=== PATIENT | female | born 1995 | race American Indian/Alaskan Native ===

== ENCOUNTER 2018-01-15 02:20 | Inpatient (IN) | payer SELFPAY ==
[2018-01-15] MEDS ORDERED: NACL 0.9% 1000 ML 1,000 ML IV ONE ×4 (03:05→16:00)
[2018-01-15] MEDS ORDERED: ZOFRAN IV ONE (03:14)
--- NOTE | 2018-01-15 03:18 | Emergency Department Report ---
HPI - General Chief Complaint: Overdose Time Seen by Provider: 01/15/18 03:04 - HPI HPI: Room 22 The patient is a 22-year-old female presenting with a chief complaint of suicidal ideation/drug overdose. The patient states she took between 18 and 20 Risperdal 2 mg pills at approximately midnight because she wanted to "go to sleep." She acknowledges she's been having thoughts of wanting to harm herself for the past 2-3 days. Patient denies any other coingestants. When asked how she is feeling currently the patient lives she feels tired and nauseous. Patient denies any other complaints Location: Mental state, see above Duration: [See above] Quality: Suicidal Severity: Severe Modifying factors: [see above] Context: [see above] Mode of transportation: [not driving] ED Past Medical Hx - Past Medical History Hx Psychiatric Treatment: Yes Hx Asthma: Yes Additional medical history: anxiety - Surgical History Past Surgical History?: No - Family History Family history: no significant - Social History Smoking Status: Never Smoker Substance Use Type: None (denies illicit drug use) - Medications Home Medications: Home Medications Medication Instructions Recorded Confirmed Last Taken Type Diclofenac Sodium 75 mg PO BID PRN #14 tablet. 04/30/15 Unknown Rx hydrOXYzine PAMOATE [Vistaril] 25 mg PO Q6HR PRN #14 capsule 04/30/15 Unknown Rx ED Review of Systems ROS: Stated complaint: OVERDOSE Other details as noted in HPI Constitutional: malaise Eyes: denies: eye pain ENT: denies: throat pain Respiratory: no symptoms reported Cardiovascular: denies: chest pain Endocrine: no symptoms reported Gastrointestinal: nausea. denies: abdominal pain Genitourinary: denies: dysuria Musculoskeletal: denies: back pain Neurological: denies: headache Psychiatric: suicidal thoughts Physical Exam - Physical Exam Vital Signs: Vital Signs 01/15/18 01/15/18 01/15/18 02:38 02:44 02:45 Temperature 98.3 F Pulse Rate 113 H 109 H 101 H Respiratory 25 H 18 Rate Blood Pressure 97/42 116/66 O2 Sat by Pulse 100 100 Oximetry 01/15/18 01/15/18 03:00 03:05 Temperature Pulse Rate 91 H 98 H Respiratory 18 Rate Blood Pressure 89/42 O2 Sat by Pulse 100 Oximetry Physical Exam: GENERAL: The patient is well-developed well-nourished female lying on stretcher resting on appeared to be in acute distress. [] HEENT: Normocephalic. Atraumatic. Extraocular motions are intact. Patient has moist mucous membranes. NECK: Supple. Trachea midline CHEST/LUNGS: Clear to auscultation. There is no respiratory distress noted. HEART/CARDIOVASCULAR: Regular. There is tachycardia. There is no gallop rub or murmur. ABDOMEN: Abdomen is soft, nontender. Patient has normal bowel sounds. There is no abdominal distention. SKIN: There is no rash. There is no edema. There is no diaphoresis. NEURO: The patient is awake, appears somewhat sleepy but is oriented. The patient is cooperative. The patient has normal speech MUSCULOSKELETAL: There is no evidence of acute injury. ED Course Vital Signs 01/15/18 01/15/18 01/15/18 02:38 02:44 02:45 Temperature 98.3 F Pulse Rate 113 H 109 H 101 H Respiratory 25 H 18 Rate Blood Pressure 97/42 116/66 O2 Sat by Pulse 100 100 Oximetry 01/15/18 01/15/18 03:00 03:05 Temperature Pulse Rate 91 H 98 H Respiratory 18 Rate Blood Pressure 89/42 O2 Sat by Pulse 100 Oximetry - Consultations Consultation #1: 01/15/18 03:20 Poison control called- cased discussed with Ale. States from [place] depends on whether the patient is a poor stream metabolize her. Recommend minimal observation for 9 hours with symptomatic and supportive care. 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 States may C hyponatremia, hypokalemia or hypomagnesemia. [place] QTC prolongation 470-500 or QRS prolongation from 110-120. Recommends optimizing electrolytes with a goal of: Potassium 4, calcium 9, magnesium 2. States the half-life ranges from 2.8-16 hours and there is an active metabolite that has a half-life of 20-22 hours. ED Medical Decision Making - Lab Data Result diagrams: 01/15/18 03:25 01/15/18 03:25 Laboratory Tests 01/15/18 01/15/18 01/15/18 03:25 03:25 03:25 WBC 6.7 RBC 3.62 L Hgb 11.1 Hct 32.9 MCV 91 MCH 31 MCHC 34 RDW 13.6 Plt Count 229 Lymph % (Auto) 20.4 [place] % (Auto) 7.2 Eos % (Auto) 0.1 Baso % (Auto) 0.2 Lymph # 1.4 [place] # 0.5 Eos # 0.0 Baso # 0.0 Seg Neutrophils % 72.1 H Seg Neutrophils # 4.8 Sodium 137 Potassium 3.0 L Chloride 101.3 Carbon Dioxide 21 L Anion Gap 18 BUN 8 Creatinine 0.7 Estimated GFR > 60 BUN/Creatinine Ratio 11 Glucose 94 Calcium 8.6 Magnesium Total Bilirubin 0.70 AST 17 ALT 8 Alkaline Phosphatase 48 Total Protein 6.5 Albumin 3.8 L Albumin/Globulin Ratio 1.4 HCG, Qual Urine Color Urine Turbidity Urine pH Ur Specific [place] Urine Protein Urine Glucose (UA) Urine Ketones Urine Blood Urine Nitrite Urine Bilirubin Urine Urobilinogen Ur Leukocyte Esterase Urine WBC (Auto) Urine RBC (Auto) U Epithel Cells (Auto) Urine Bacteria (Auto) Salicylates < 0.3 L Urine Opiates Screen Urine Methadone Screen Acetaminophen Ur Barbiturates Screen Ur Phencyclidine Scrn Ur Amphetamines Screen U Benzodiazepines Scrn Urine Cocaine Screen U Marijuana (THC) Screen Drugs of Abuse Note Plasma/Serum Alcohol 01/15/18 01/15/18 01/15/18 03:25 03:25 03:25 WBC RBC Hgb Hct MCV MCH MCHC RDW Plt Count Lymph % (Auto) [place] % (Auto) Eos % (Auto) Baso % (Auto) Lymph # [place] # Eos # Baso # Seg Neutrophils % Seg Neutrophils # Sodium Potassium Chloride Carbon Dioxide Anion Gap BUN Creatinine Estimated GFR BUN/Creatinine Ratio Glucose Calcium Magnesium Total Bilirubin AST ALT Alkaline Phosphatase Total Protein Albumin Albumin/Globulin Ratio HCG, Qual Negative Urine Color Urine Turbidity Urine pH Ur Specific [place] Urine Protein Urine Glucose (UA) Urine Ketones Urine Blood Urine Nitrite Urine Bilirubin Urine Urobilinogen Ur Leukocyte Esterase Urine WBC (Auto) Urine RBC (Auto) U Epithel Cells (Auto) Urine Bacteria (Auto) Salicylates Urine Opiates Screen Urine Methadone Screen Acetaminophen < 5.0 L Ur Barbiturates Screen Ur Phencyclidine Scrn Ur Amphetamines Screen U Benzodiazepines Scrn Urine Cocaine Screen U Marijuana (THC) Screen Drugs of Abuse Note Plasma/Serum Alcohol < 0.01 01/15/18 01/15/18 01/15/18 03:25 Unknown Unknown WBC RBC Hgb Hct MCV MCH MCHC RDW Plt Count Lymph % (Auto) [place] % (Auto) Eos % (Auto) Baso % (Auto) Lymph # [place] # Eos # Baso # Seg Neutrophils % Seg Neutrophils # Sodium Potassium Chloride Carbon Dioxide Anion Gap BUN Creatinine Estimated GFR BUN/Creatinine Ratio Glucose Calcium Magnesium 1.80 Total Bilirubin AST ALT Alkaline Phosphatase Total Protein Albumin Albumin/Globulin Ratio HCG, Qual Urine Color Straw Urine Turbidity Clear Urine pH 6.0 Ur Specific [place] 1.003 Urine Protein <15 mg/dl Urine Glucose (UA) Neg Urine Ketones Tr Urine Blood Sm Urine Nitrite Neg Urine Bilirubin Neg Urine Urobilinogen < 2.0 Ur Leukocyte Esterase Mod Urine WBC (Auto) 5.0 Urine RBC (Auto) 6.0 U Epithel Cells (Auto) 2.0 Urine Bacteria (Auto) 1+ Salicylates Urine Opiates Screen Presumptive negative Urine Methadone Screen Presumptive negative Acetaminophen Ur Barbiturates Screen Presumptive negative Ur Phencyclidine Scrn Presumptive negative Ur Amphetamines Screen Presumptive negative U Benzodiazepines Scrn Presumptive negative Urine Cocaine Screen Presumptive negative U Marijuana (THC) Screen Presumptive negative Drugs of Abuse Note Disclamer Plasma/Serum Alcohol - EKG Data -: EKG Interpreted by Nv EKG shows normal: sinus rhythm Rate: normal - EKG Data When compared to previous EKG there are: previous EKG unavailable Interpretation: other (QRS 93, QTc 476) - Differential Diagnosis suicidal ideation, Risperdal overdose Critical care attestation.: If time is entered above; I have spent that time in minutes in the direct care of this critically ill patient, excluding procedure time. ED Disposition Clinical Impression: Suicidal ideation, Suicide gesture, Intentional drug overdose, Hypokalemia Disposition: DC/TX-65 PSY HOSP/PSY UNIT Is pt being admited?: No Does the pt Need Aspirin: No Condition: Serious Referrals: PRIMARY CARE, [Primary Care Provider] - 3-5 Days Time of Disposition: 04:04 (hospitalist paged (Dr. Jennifer Angel))
[2018-01-15 03:36] LABS: Basophils % (Auto) 0.2 % (0.0-1.8); Eosinophils % (Auto) 0.1 % (0.0-4.3); Hematocrit 32.9 % (30.3-42.9); Hemoglobin 11.1 gm/dl (10.1-14.3); Lymphocytes # (Auto) 1.4 K/mm3 (1.2-5.4); Lymphocytes % (Auto) 20.4 % (13.4-35.0); Mean Corpuscular HGB Conc 34 % (30-34); Mean Corpuscular Hemoglobin 31 pg (28-32); Mean Corpuscular Volume 91 fl (79-97); Monocytes # (Auto) 0.5 K/mm3 (0.0-0.8); Monocytes % (Auto) 7.2 % (0.0-7.3); Platelet Count 229 K/mm3 (140-440); Red Blood Count 3.62 M/mm3 (3.65-5.03); Red Cell Distribution Width 13.6 % (13.2-15.2)
[2018-01-15 03:46] LABS: Bacteria,Urine 1+ /HPF (Negative); Bilirubin,Urine NEG (Negative); Blood,Urine SM (Negative); Color,Urine Straw (Yellow); Protein,Urine <15 mg/dL mg/dL (Negative); Urobilinogen,Urine < 2.0 mg/dL (<2.0)
[2018-01-15] MEDS ORDERED: MAGNESIUM SULFATE 2GM/50ML 2 GM/50 ML BAG IV ONE (03:49)
[2018-01-15 03:51] LABS: Alanine Aminotransferase 8 units/L (7-56); Albumin 3.8 g/dL (3.9-5); BUN/Creatinine Ratio 11; Blood Urea Nitrogen 8 mg/dL (7-17); Calcium 8.6 mg/dL (8.4-10.2); Hemolysis Index 5
[2018-01-15 03:53] LABS: Amphetamine Screen,Urine PRESUMPTIVE NEGATIVE; Benzodiazepines Screen,Urine PRESUMPTIVE NEGATIVE; Cannabinoid Screen,Urine PRESUMPTIVE NEGATIVE; Cocaine Screen,Urine PRESUMPTIVE NEGATIVE; Methadone Screen,Urine PRESUMPTIVE NEGATIVE; Opiate Screen,Urine PRESUMPTIVE NEGATIVE
[2018-01-15] MEDS ORDERED: K-DUR PO ONE (04:00)
[2018-01-15] MEDS ORDERED: CALCIUM GLUCONATE 1,000 MG in NACL 0.9% 100 ML IV ONE (04:00)
[2018-01-15] MEDS: KCL 10MEQ/100ML 10 MEQ/100 ML BAG IV SCH ×5 (04:44→13:34)
--- NOTE | 2018-01-15 10:08 | History and Physical Report ---
History of Present Illness Date of examination: 01/15/18 Date of admission: 01/15/18 06:02 Chief complaint: overdose of risperidol History of present illness: Patient is a 22-year-old lady who has a history of bipolar disorder with depression presented to emergency department on account of the Risperdal. Patient stated that she wanted with her sleep. Took 18-20 tablets of Risperdal. Admits she's been having some suicidal ideations and had been planned overdose. However currently states that he no longer wants to hurt herself. Feels tired. However interactive. Denies any chest pain no abdomen tenderness and no vomiting. Denies any visual or auditory or tactile hallucinations. Blood chemistry in the emergency department was for hypokalemia otherwise unremarkable. Past History Past Medical History: other (schizophrenia) Past Surgical History: No surgical history Social history: denies: smoking, alcohol abuse Family history: denies: hypertension, stroke Medications and Allergies Allergies Allergy/AdvReac Type Severity Reaction Status Date / Time No Known Allergies Allergy Verified 01/15/18 02:54 Home Medications Medication Instructions Recorded Confirmed Last Taken Type Diclofenac Sodium 75 mg PO BID PRN #14 tablet. 04/30/15 01/17/18 Unknown Rx hydrOXYzine PAMOATE [Vistaril] 25 mg PO Q6HR PRN #14 capsule 04/30/15 01/17/18 Unknown Rx Active Meds: Review of systems Constitutional: Well Nouridhed and Well developed. Head: NC/ AT Eyes: Denies any visual impairments. No discharge from the eyes Nose: Denies any rhinorrhea or epistaxis Throats: Denies any post nasal drainage. Ears: Denies any hearing deficits Cardiovascular system: Denies any chest pain, shortness of breath, orthopnea, paroxysmal nocturnal dyspnea, or palpitation. Respiratory system: Denies any cough, difficulty breathing, wheezing, pleuritic chest pain, Gastrointestinal system: Denies any abdominal pain, nausea vomiting, hematemesis or melena. Neurological system: Denies any headache, slurred speech, facial droop, lateralizing weakness Genitalia system: Denies any dysuria, urinary frequency or urgency, urethral discharge Skin: No rashes, hyperpigmented spots. Hematological: Denies any cervical tenderness hemorrhages or petechia. Immunological: Denies any multiple septic spots, Lymphatic: Denies any generalized lymphadenopathy. Endocrine: Denies any polyuria, polydipsia, polyphagia. No heat or cold intolerance. Musculoskeletal system: No joint pain or swelling. Psych: Has occasional suicidal ideations. Denies visual, tactile or auditory hallucination Exam - Physical Exam Narrative exam: Constitutional: Well-nourished well-developed. In no distress Head: Normocephalic atraumatic Eyes: Pupils are equal round and reactive to light Nose: No enlarged turbinates, no septal deviation. Mouth: Moist mucous membranes. Neck: Supple no thyromegaly. No bruit. No JVD Heart: Regular rate and rhythm, S1-S2 abnormal. No rubs murmurs or gallop Lungs: Clear to auscultation bilaterally no rales or rhonchi Abdomen: Soft, nontender. Bowel sound are present. Extremities: No edema no cyanosis and no clubbing. Neuro: Alert oriented Oriented x3. No focal sensory or motor deficit. Skin: No rashes no hyperemic spots Psychiatry: Has suicidal ideations in the past but none now - Constitutional Vitals: Temp Pulse Resp BP Pulse Ox 98.3 F 106 H 17 98/59 100 01/15/18 02:44 01/15/18 05:30 01/15/18 05:30 01/15/18 05:30 01/15/18 05:30 Results - Labs CBC & Chem 7: 01/15/18 03:25 01/16/18 21:23 Labs: Abnormal lab results 01/15/18 01/15/18 01/15/18 Range/Units 03:25 03:25 03:25 RBC 3.62 L (3.65-5.03) M/mm3 Seg Neutrophils % 72.1 H (40.0-70.0) % Potassium 3.0 L (3.6-5.0) mmol/L Carbon Dioxide 21 L (22-30) mmol/L Albumin 3.8 L (3.9-5) g/dL Salicylates < 0.3 L (2.8-20.0) mg/dL Acetaminophen (10.0-30.0) ug/mL 01/15/18 Range/Units 03:25 RBC (3.65-5.03) M/mm3 Seg Neutrophils % (40.0-70.0) % Potassium (3.6-5.0) mmol/L Carbon Dioxide (22-30) mmol/L Albumin (3.9-5) g/dL Salicylates (2.8-20.0) mg/dL Acetaminophen < 5.0 L (10.0-30.0) ug/mL - Imaging and Cardiology Chest x-ray: report reviewed Assessment and Plan - Intentional Drug overdose with Risperdal No nausea no vomiting. We will trend neuro status- Psych consult - Hypokalemia We'll supplement - Metabolic acidosis IV hydration - DVT prophylaxis with heparin and GI with Pepcid The high probability of a clinically significant, sudden or life threatening deterioration of the [] system(s) required my full and direct attention, intervention and personal management. The aggregate critical care time was [] minutes. This time is in addition to time spent performing reported procedures but includes the following: [X] Data Review and interpretation [x] Patient assessment and monitoring of vital signs [x] Documentation [x] Medication orders and management
[2018-01-15] MEDS ORDERED: KCL 20MEQ/100ML 20 MEQ/100 ML BAG IV ONE (10:12)
[2018-01-15] MEDS ORDERED: D5/0.45NS 1,000 ML IV SCH (11:00)
--- NOTE | 2018-01-15 16:32 | Consultation ---
History of Present Illness - Reason for Consult Consult date: 01/15/18 Reason for consult: overdose on risperidone - Chief Complaint Chief complaint: "I took 20 risperdal." - History of Present Psychiatric Illness She reports an overdose on risperidone (18-20) two milligram tabs at approx 12: 30am 01/15/2018. She is prescribed 2mg hs for bipolar disorder, depressed episode. She states she "wanted to sleep." She states she had been up for many hours and only wanted to sleep, not . She states she kept taking more since she did not feel the effect. She states she did not think of the consequences of taking multiple pills. She reports being stressed with having 2 jobs and family responsibilities. She denies having any disagreements with family or friends. She reported feeling tired and the interview was ended. Medications and Allergies Allergies Allergy/AdvReac Type Severity Reaction Status Date / Time No Known Allergies Allergy Verified 01/15/18 02:54 Home Medications Medication Instructions Recorded Confirmed Last Taken Type Diclofenac Sodium 75 mg PO BID PRN #14 tablet.dr 04/30/15 Unknown Rx hydrOXYzine PAMOATE [Vistaril] 25 mg PO Q6HR PRN #14 capsule 04/30/15 Unknown Rx Past psychiatric history - past Psychiatric treatment and history Psych: Bipolar psychiatric treatment history: She reports being hospitalized x 2 since 2017 for bipolar disorder/depression - Social History Social history: lives with family ( and lives with 's family), other (works 2 jobs) Mental Status Exam - Vital signs Last Vital Signs Temp 98.3 F 01/15/18 02:44 Pulse 78 01/15/18 11:00 Resp 16 01/15/18 11:00 BP 110/45 01/15/18 12:30 Pulse Ox 100 01/15/18 12:30 - Exam Orientation: time, place, person Affect: flat Mood: congruent with affect Thought content: other (discussed overdose. denies it was a suicide attempt) Thought Process: Intact (limited in scope) Perceptions: none Speech: slow Concentration: unable to pay attention Motor activity: lethargic Level of consciousness: sedated Memory: Intact Interaction: cooperative Results Result Diagrams: 01/15/18 03:25 01/15/18 12:10 Abnormal lab results 01/15/18 01/15/18 01/15/18 Range/Units 03:25 03:25 03:25 RBC 3.62 L (3.65-5.03) M/mm3 Seg Neutrophils % 72.1 H (40.0-70.0) % Potassium 3.0 L (3.6-5.0) mmol/L Carbon Dioxide 21 L (22-30) mmol/L Albumin 3.8 L (3.9-5) g/dL Salicylates < 0.3 L (2.8-20.0) mg/dL Acetaminophen (10.0-30.0) ug/mL 01/15/18 Range/Units 03:25 RBC (3.65-5.03) M/mm3 Seg Neutrophils % (40.0-70.0) % Potassium (3.6-5.0) mmol/L Carbon Dioxide (22-30) mmol/L Albumin (3.9-5) g/dL Salicylates (2.8-20.0) mg/dL Acetaminophen < 5.0 L (10.0-30.0) ug/mL All other labs normal. Assessment and Plan Assessment and plan: Impression: Overdose on risperidone (18-20) two milligram tabs She is prescribed 2mg hs for bipolar disorder, depressed episode. Urine drug screen is negative. 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 She is under the care of the hospitalist team. Continue 1013. Once medically cleared, transfer to inpatient psychiatric facility for stabilization. Obtain collateral from family No meds recommended at this time.
[2018-01-15 22:22] LABS: BUN/Creatinine Ratio 8; Blood Urea Nitrogen 5 mg/dL (7-17); Calcium 8.6 mg/dL (8.4-10.2); Hemolysis Index 5
--- NOTE | 2018-01-16 09:41 | Discharge Summary ---
Providers - Providers Date of Admission: 01/15/18 06:02 Date of discharge: 01/16/18 Attending physician: WILLEM BROOKS 01/15/18 10:13 psychiatry consult [Consult to Mental Health] [CONS] Routine Reason For Exam: major depression with drug overdose Place consult to:: psych Notified:: Nilam DE SANTIAGO Comment:: patient seen by mental health pizzamaker per note 01/15/18 @ 0625 Primary care physician: DIRECTOR OF GOVERNMENT SALES Hospitalization Reason for admission: overdose on Risperdal, suicidal ideation, bipolar disorder Condition: Serious Pertinent studies: Negative urine drug screen, blood chemistry showed hypokalemia Procedures: none Hospital course: Pt is a 22-year-old female who has a history of bipolar disorder and depression , presented with a history of taking overdose of Risperdal having been having suicidal ideation with drug overdose. The patient states she took between 18 and 20 Risperdal 2 mg pills at approximately midnight because she wanted to "go to sleep." She acknowledges she's been having thoughts of wanting to harm herself for the past 2-3 days. Patient denies any other coingestants. When asked how she is feeling currently the patient lives she feels tired and nauseous. On admission to the emergency department, industry was normal. Chemistry showed hypokalemia. Patient was slightly drowsy and weak. IV hydration commenced. Hypokalemia corrected. Psych consult obtained. Patient placed on 1013. Advised to be transferred to inpatient psych unit on medical stabilization. Patient is not medically stabilized and will be transferred to inpt psych unit for further evaluation and management of her major depression and suicidal ideations. Disposition: DC/TX-65 PSY HOSP/PSY UNIT Time spent for discharge: 35 mins - Discharge Diagnoses (1) Hypokalemia Status: Acute (2) Intentional drug overdose Status: Acute (3) Suicidal ideation Status: Acute (4) Suicide gesture Status: Acute Core Measure Documentation - Palliative Care Palliative Care/ Comfort Measures: Not Applicable - Core Measures Any of the following diagnoses?: none Exam - Physical Exam Narrative exam: Constitutional: Well-nourished well-developed.In no distress Head: Normocephalic atraumatic Eyes: Pupils are equal round and reactive to light Nose: No enlarged turbinates, no septal deviation. Mouth: Moist mucous membranes. Neck: Supple no thyromegaly. No bruit. No JVD Heart: Regular rate and rhythm, S1-S2 abnormal. No rubs murmurs or gallop Lungs: Clear to auscultation bilaterally no rales or rhonchi Abdomen: Soft, nontender. Bowel sound are present. Extremities: No edema no cyanosis and no clubbing. Neuro: Alert oriented Oriented x3. No focal sensory or motor deficit. Skin: No rashes no hyperemic spots Psychiatry: Has suicidal ideations in the past but none now - Constitutional Vitals: Temp Pulse Resp BP Pulse Ox 98.6 F 79 16 109/64 99 01/16/18 07:14 01/16/18 07:14 01/16/18 07:14 01/16/18 07:14 01/16/18 07:14 Plan Activity: fall precautions Weight Bearing Status: Weight Bear as Tolerated Diet: regular Follow up with: PRIMARY CAREMD [Primary Care Provider] - 3-5 Days
[2018-01-16 10:22] LABS: BUN/Creatinine Ratio 10; Blood Urea Nitrogen 6 mg/dL (7-17); Calcium 8.5 mg/dL (8.4-10.2); Hemolysis Index 99
[2018-01-16 22:08] LABS: BUN/Creatinine Ratio 10; Blood Urea Nitrogen 7 mg/dL (7-17); Calcium 9.1 mg/dL (8.4-10.2); Hemolysis Index 1
[2018-01-17 10:50] LABS: BUN/Creatinine Ratio 13; Blood Urea Nitrogen 8 mg/dL (7-17); Calcium 8.9 mg/dL (8.4-10.2); Hemolysis Index 4
--- NOTE | 2018-01-17 12:41 | Progress Note ---
Assessment and Plan Assessment and plan: --Intentional Drug overdose with Risperdal; Symptoms improved, continue supportive care, 1013 status --Suicidal attempt; patient feels slightly better Awaiting inpatient psych placement Continue current management -- Hypokalemia; corrected, closely monitor --Metabolic acidosis; IV hydration --DVT prophylaxis with heparin . Patient is medically stable for discharge and transfer to inpatient psych facility Pending placement to inpatient psych Patient may be transferred to medical floor Dis position per psych History Interval history: Patient seen and examined medical records reviewed No new events reported by nursing Patient was initially discharged yesterday, however case management could not sit up Inpatient psych placement Patient comfortable no new complaints Vital signs reviewed Hospitalist Physical - Constitutional Vitals: Temp Pulse Resp BP Pulse Ox 98.1 F 76 20 104/65 98 01/17/18 11:36 01/17/18 11:36 01/17/18 11:36 01/17/18 11:36 01/17/18 11:36 General appearance: Present: no acute distress, well-nourished - EENT Eyes: Present: PERRL, EOM intact - Neck Neck: Present: supple, normal ROM - Respiratory Respiratory effort: normal Respiratory: bilateral: diminished, negative: rales, rhonchi, wheezing - Cardiovascular Rhythm: regular Heart Sounds: Present: S1 & S2 - Extremities Extremities: no ischemia, No edema - Abdominal General gastrointestinal: soft, non-tender, non-distended, normal bowel sounds - Integumentary Integumentary: Present: clear, warm - Psychiatric Psychiatric: appropriate mood/affect, cooperative - Neurologic Neurologic: CNII-XII intact, moves all extremities Results - Labs CBC & Chem 7: 01/15/18 03:25 01/17/18 09:37 Labs: Laboratory Last Values WBC 6.7 K/mm3 (4.5-11.0) 01/15/18 03:25 RBC 3.62 M/mm3 (3.65-5.03) L 01/15/18 03:25 Hgb 11.1 gm/dl (10.1-14.3) 01/15/18 03:25 Hct 32.9 % (30.3-42.9) 01/15/18 03:25 MCV 91 fl (79-97) 01/15/18 03:25 MCH 31 pg (28-32) 01/15/18 03:25 MCHC 34 % (30-34) 01/15/18 03:25 RDW 13.6 % (13.2-15.2) 01/15/18 03:25 Plt Count 229 K/mm3 (140-440) 01/15/18 03:25 Lymph % (Auto) 20.4 % (13.4-35.0) 01/15/18 03:25 [place] % (Auto) 7.2 % (0.0-7.3) 01/15/18 03:25 Eos % (Auto) 0.1 % (0.0-4.3) 01/15/18 03:25 Baso % (Auto) 0.2 % (0.0-1.8) 01/15/18 03:25 Lymph # 1.4 K/mm3 (1.2-5.4) 01/15/18 03:25 [place] # 0.5 K/mm3 (0.0-0.8) 01/15/18 03:25 Eos # 0.0 K/mm3 (0.0-0.4) 01/15/18 03:25 Baso # 0.0 K/mm3 (0.0-0.1) 01/15/18 03:25 Seg Neutrophils % 72.1 % (40.0-70.0) H 01/15/18 03:25 Seg Neutrophils # 4.8 K/mm3 (1.8-7.7) 01/15/18 03:25 Sodium 140 mmol/L (137-145) 01/17/18 09:37 Potassium 4.0 mmol/L (3.6-5.0) 01/17/18 09:37 Chloride 105.8 mmol/L (98-107) 01/17/18 09:37 Carbon Dioxide 25 mmol/L (22-30) 01/17/18 09:37 Anion Gap 13 mmol/L 01/17/18 09:37 BUN 8 mg/dL (7-17) 01/17/18 09:37 Creatinine 0.6 mg/dL (0.7-1.2) L 01/17/18 09:37 Estimated GFR > 60 ml/min 01/17/18 09:37 BUN/Creatinine Ratio 13 % 01/17/18 09:37 Glucose 98 mg/dL (65-100) 01/17/18 09:37 Calcium 8.9 mg/dL (8.4-10.2) 01/17/18 09:37 Magnesium 1.80 mg/dL (1.7-2.3) 01/15/18 03:25 Total Bilirubin 0.70 mg/dL (0.1-1.2) 01/15/18 03:25 AST 17 units/L (5-40) 01/15/18 03:25 ALT 8 units/L (7-56) 01/15/18 03:25 Alkaline Phosphatase 48 units/L (35-129) 01/15/18 03:25 Total Protein 6.5 g/dL (6.3-8.2) 01/15/18 03:25 Albumin 3.8 g/dL (3.9-5) L 01/15/18 03:25 Albumin/Globulin Ratio 1.4 % 01/15/18 03:25 HCG, Qual Negative (Negative) 01/15/18 03:25 Urine Color Straw (Yellow) 01/15/18 Unknown Urine Turbidity Clear (Clear) 01/15/18 Unknown Urine pH 6.0 (5.0-7.0) 01/15/18 Unknown Ur Specific [place] 1.003 (1.003-1.030) 01/15/18 Unknown Urine Protein <15 mg/dl mg/dL (Negative) 01/15/18 Unknown Urine Glucose (UA) Neg mg/dL (Negative) 01/15/18 Unknown Urine Ketones Tr mg/dL (Negative) 01/15/18 Unknown Urine Blood Sm (Negative) 01/15/18 Unknown Urine Nitrite Neg (Negative) 01/15/18 Unknown Urine Bilirubin Neg (Negative) 01/15/18 Unknown Urine Urobilinogen < 2.0 mg/dL (<2.0) 01/15/18 Unknown Ur Leukocyte Esterase Mod (Negative) 01/15/18 Unknown Urine WBC (Auto) 5.0 /HPF (0.0-6.0) 01/15/18 Unknown Urine RBC (Auto) 6.0 /HPF (0.0-6.0) 01/15/18 Unknown U Epithel Cells (Auto) 2.0 /HPF (0-13.0) 01/15/18 Unknown Urine Bacteria (Auto) 1+ /HPF (Negative) 01/15/18 Unknown Salicylates < 0.3 mg/dL (2.8-20.0) L 01/15/18 03:25 Urine Opiates Screen Presumptive negative 01/15/18 Unknown Urine Methadone Screen Presumptive negative 01/15/18 Unknown Acetaminophen < 5.0 ug/mL (10.0-30.0) L 01/15/18 03:25 Ur Barbiturates Screen Presumptive negative 01/15/18 Unknown Ur Phencyclidine Scrn Presumptive negative 01/15/18 Unknown Ur Amphetamines Screen Presumptive negative 01/15/18 Unknown U Benzodiazepines Scrn Presumptive negative 01/15/18 Unknown Urine Cocaine Screen Presumptive negative 01/15/18 Unknown U Marijuana (THC) Screen Presumptive negative 01/15/18 Unknown Drugs of Abuse Note Disclamer 01/15/18 Unknown Plasma/Serum Alcohol < 0.01 % (0-0.07) 01/15/18 03:25
--- NOTE | 2018-01-17 15:12 | Progress Note ---
Subjective - Reason for Consult Consult date: 01/17/18 Reason for consult: Psychiatry Follow-up - Chief Complaint Chief complaint: "I was stressed" 22 y.o. AA female presenting to the ER for overdosing on several Risperdal pills. Today the patient is calm and cooperative during the assessment. Today the patient stated that she took the pills because she was stressed out and that she wanted to sleep. She would not confirm or deny that she wanted to wake up when asked. She stated that she used to cut her arms in the past. She stated having thoughts about committing suicide in the past, so some of her stress would leave. She stated that she was a patient at [facility] for 5 days in the past because she need stabilization. She denies SI/HI's and AVH's. She stated that her sleep has been erratic lately. She denies a poor appetite. Her mother Mary Ellen was at the bedside and confirmed the hx of the patient. Mental Status Exam - Vital signs Last Vital Signs Temp 98.1 F 01/17/18 11:36 Pulse 76 01/17/18 11:36 Resp 20 01/17/18 11:36 BP 104/65 01/17/18 11:36 Pulse Ox 98 01/17/18 11:36 - Exam Narrative exam: MSE: Appearance: calm, cooperative Behavior: regular eye contact Speech: regular rate and low tone Mood: "okay" Affect: congruent to mood Thought Process: circumstantial Thought Content: denies SI/HI's and AVH's Motor Activity: lying in bed Cognition: A/O x 3 Insight: variable Judgment: variable Assessment and Plan Impression: Hx of Bipolar DO. Overdose on risperidone (18-20) two milligram tabs. Hx of self injury. Today the patient is calm and cooperative during the assessment. UDS is negative. QTC WNL. DDx: R/O Personality DO Recommendation/Plan: Continue 1013 with placement to inpatient psy services. Start Abilify 5 mg PO mood and Benadryl 25 mg PO HS for sleep. Discussed possible metabolic side effects of Abilify with patient and her mother Mary Ellen.
[2018-01-17] MEDS: ABILIFY PO SCH (21:52)
[2018-01-17] MEDS: BENADRYL PO SCH (21:52)
--- NOTE | 2018-01-18 14:17 | Progress Note ---
Subjective - Reason for Consult Consult date: 01/18/18 Reason for consult: Psychiatric Follow-up Evaluation - Chief Complaint Chief complaint: "Happy" Patient is a 22 year old female who presents to the ER for overdosing on several Risperdal pills. Today the patient is calm and cooperative during the assessment. She states, " I woke up this morning feeling fresh. I feel like a new person. I took Abilify last night. I have not had any side effects." She verbalizes I didn't like taking medications in the past because of the side effects. The medicine made me feel groggy so I stopped taking it." She reports good sleep and appetite. She denies SI/HI, A/VH, and delusions. Patient appears to have a good support system. Patient's mother, grandmother, and family at bedside but left during the assessment. Mental Status Exam - Vital signs Last Vital Signs Temp 98.6 F 01/18/18 11:25 Pulse 98 H 01/18/18 11:25 Resp 18 01/18/18 11:25 BP 113/61 01/18/18 11:25 Pulse Ox 98 01/18/18 11:25 - Exam Narrative exam: Mental Status Exam General Appearance: Causally Dressed-hospital gown Eye Contact: Intermittent Orientation: Alert and oriented x 4 (person, place, time, date, and situation) Attitude/Behavior: Cooperative Sensorium: Clear Psychomotor & Musculoskeletal Activity: Ambulatory Mood: "Happy" Affect: Congruent with mood Speech/Language: Loud Thought Processes: Normal regular and rate Thought Content: Reality oriented. Patient denies delusions. Perception: Patient denies A/V/T hallucinations. Concentration/Attention: Impaired Suicidal Ideations/Plan: Patient denies. Homicidal Ideations/Plan: Patient denies. Judgment: Variable Insight: Variable Assessment and Plan Impression: Hx of Bipolar DO. Overdose on risperidone (18-20) two milligram tabs. Hx of self injury. Today the patient is calm and cooperative during the assessment. UDS is negative. QTC WNL. Patient denies SI/HI, A/VH, and delusions. DDx: R/O Personality DO Recommendation/Plan: 1. Continue 1013 with placement to inpatient psychiatric services. 2. Continue Abilify 5 mg PO mood and Benadryl 25 mg PO HS for sleep. Discussed possible metabolic side effects of Abilify. Patient verbalizes understanding. 3. Will continue to monitor mood, sleep, appetite, compliance, and side effects.
--- NOTE | 2018-01-18 17:22 | Progress Note ---
Assessment and Plan Assessment and plan: --Suicidal attempt; patient feels slightly better Awaiting inpatient psych placement Continue current management --Intentional Drug overdose with Risperdal; Symptoms improved, continue supportive care, 1013 status -- Hypokalemia; corrected, --Metabolic acidosis; resolved --DVT prophylaxis with heparin . Patient medically stable for discharge if okay with psych Dis position per psych History Interval history: Patient seen and examined medical records reviewed Feels better no new complaints Medically stable for discharge, Awaiting inpatient psych placement Patient remains in 1013 status, Vital signs reviewed stable Hospitalist Physical - Constitutional Vitals: Temp Pulse Resp BP Pulse Ox 98.6 F 98 H 18 113/61 98 01/18/18 11:25 01/18/18 11:25 01/18/18 11:25 01/18/18 11:25 01/18/18 11:25 General appearance: Present: no acute distress, well-nourished - EENT Eyes: Present: PERRL, EOM intact - Neck Neck: Present: supple, normal ROM - Respiratory Respiratory effort: normal Respiratory: bilateral: diminished, negative: rales, rhonchi, wheezing - Cardiovascular Rhythm: regular Heart Sounds: Present: S1 & S2 - Extremities Extremities: no ischemia, No edema - Abdominal General gastrointestinal: soft, non-tender, non-distended, normal bowel sounds - Integumentary Integumentary: Present: clear, warm - Psychiatric Psychiatric: appropriate mood/affect, cooperative - Neurologic Neurologic: CNII-XII intact, moves all extremities Results - Labs CBC & Chem 7: 01/15/18 03:25 01/17/18 09:37 Labs: Laboratory Last Values WBC 6.7 K/mm3 (4.5-11.0) 01/15/18 03:25 RBC 3.62 M/mm3 (3.65-5.03) L 01/15/18 03:25 Hgb 11.1 gm/dl (10.1-14.3) 01/15/18 03:25 Hct 32.9 % (30.3-42.9) 01/15/18 03:25 MCV 91 fl (79-97) 01/15/18 03:25 MCH 31 pg (28-32) 01/15/18 03:25 MCHC 34 % (30-34) 01/15/18 03:25 RDW 13.6 % (13.2-15.2) 01/15/18 03:25 Plt Count 229 K/mm3 (140-440) 01/15/18 03:25 Lymph % (Auto) 20.4 % (13.4-35.0) 01/15/18 03:25 [place] % (Auto) 7.2 % (0.0-7.3) 01/15/18 03:25 Eos % (Auto) 0.1 % (0.0-4.3) 01/15/18 03:25 Baso % (Auto) 0.2 % (0.0-1.8) 01/15/18 03:25 Lymph # 1.4 K/mm3 (1.2-5.4) 01/15/18 03:25 [place] # 0.5 K/mm3 (0.0-0.8) 01/15/18 03:25 Eos # 0.0 K/mm3 (0.0-0.4) 01/15/18 03:25 Baso # 0.0 K/mm3 (0.0-0.1) 01/15/18 03:25 Seg Neutrophils % 72.1 % (40.0-70.0) H 01/15/18 03:25 Seg Neutrophils # 4.8 K/mm3 (1.8-7.7) 01/15/18 03:25 Sodium 140 mmol/L (137-145) 01/17/18 09:37 Potassium 4.0 mmol/L (3.6-5.0) 01/17/18 09:37 Chloride 105.8 mmol/L (98-107) 01/17/18 09:37 Carbon Dioxide 25 mmol/L (22-30) 01/17/18 09:37 Anion Gap 13 mmol/L 01/17/18 09:37 BUN 8 mg/dL (7-17) 01/17/18 09:37 Creatinine 0.6 mg/dL (0.7-1.2) L 01/17/18 09:37 Estimated GFR > 60 ml/min 01/17/18 09:37 BUN/Creatinine Ratio 13 % 01/17/18 09:37 Glucose 98 mg/dL (65-100) 01/17/18 09:37 Calcium 8.9 mg/dL (8.4-10.2) 01/17/18 09:37 Magnesium 1.80 mg/dL (1.7-2.3) 01/15/18 03:25 Total Bilirubin 0.70 mg/dL (0.1-1.2) 01/15/18 03:25 AST 17 units/L (5-40) 01/15/18 03:25 ALT 8 units/L (7-56) 01/15/18 03:25 Alkaline Phosphatase 48 units/L (35-129) 01/15/18 03:25 Total Protein 6.5 g/dL (6.3-8.2) 01/15/18 03:25 Albumin 3.8 g/dL (3.9-5) L 01/15/18 03:25 Albumin/Globulin Ratio 1.4 % 01/15/18 03:25 HCG, Qual Negative (Negative) 01/15/18 03:25 Urine Color Straw (Yellow) 01/15/18 Unknown Urine Turbidity Clear (Clear) 01/15/18 Unknown Urine pH 6.0 (5.0-7.0) 01/15/18 Unknown Ur Specific [place] 1.003 (1.003-1.030) 01/15/18 Unknown Urine Protein <15 mg/dl mg/dL (Negative) 01/15/18 Unknown Urine Glucose (UA) Neg mg/dL (Negative) 01/15/18 Unknown Urine Ketones Tr mg/dL (Negative) 01/15/18 Unknown Urine Blood Sm (Negative) 01/15/18 Unknown Urine Nitrite Neg (Negative) 01/15/18 Unknown Urine Bilirubin Neg (Negative) 01/15/18 Unknown Urine Urobilinogen < 2.0 mg/dL (<2.0) 01/15/18 Unknown Ur Leukocyte Esterase Mod (Negative) 01/15/18 Unknown Urine WBC (Auto) 5.0 /HPF (0.0-6.0) 01/15/18 Unknown Urine RBC (Auto) 6.0 /HPF (0.0-6.0) 01/15/18 Unknown U Epithel Cells (Auto) 2.0 /HPF (0-13.0) 01/15/18 Unknown Urine Bacteria (Auto) 1+ /HPF (Negative) 01/15/18 Unknown Salicylates < 0.3 mg/dL (2.8-20.0) L 01/15/18 03:25 Urine Opiates Screen Presumptive negative 01/15/18 Unknown Urine Methadone Screen Presumptive negative 01/15/18 Unknown Acetaminophen < 5.0 ug/mL (10.0-30.0) L 01/15/18 03:25 Ur Barbiturates Screen Presumptive negative 01/15/18 Unknown Ur Phencyclidine Scrn Presumptive negative 01/15/18 Unknown Ur Amphetamines Screen Presumptive negative 01/15/18 Unknown U Benzodiazepines Scrn Presumptive negative 01/15/18 Unknown Urine Cocaine Screen Presumptive negative 01/15/18 Unknown U Marijuana (THC) Screen Presumptive negative 01/15/18 Unknown Drugs of Abuse Note Disclamer 01/15/18 Unknown Plasma/Serum Alcohol < 0.01 % (0-0.07) 01/15/18 03:25
[2018-01-18] MEDS: ABILIFY PO SCH (21:20)
[2018-01-18] MEDS: BENADRYL PO SCH (21:21)
--- NOTE | 2018-01-19 11:32 | Discharge Summary ---
Providers - Providers Date of Admission: 01/15/18 06:02 Date of discharge: 01/19/18 Attending physician: RENY OLIVERA 01/15/18 10:13 psychiatry consult [Consult to Mental Health] [CONS] Routine Reason For Exam: major depression with drug overdose Place consult to:: psych Notified:: Nilam DE SANTIAGO Comment:: patient seen by mental health second baker per note 01/15/18 @ 0625 Primary care physician: PUBLICATION DESIGNER Hospitalization Condition: Serious Disposition: DC-01 TO HOME OR SELFCARE Time spent for discharge: 32 min Core Measure Documentation - Palliative Care Palliative Care/ Comfort Measures: Not Applicable - Core Measures Any of the following diagnoses?: none Exam - Constitutional Vitals: Temp Pulse Resp BP Pulse Ox 98.2 F 68 20 84/41 98 01/19/18 04:41 01/19/18 04:41 01/19/18 04:41 01/19/18 04:41 01/19/18 04:41 General appearance: Present: no acute distress, well-nourished - EENT Eyes: Present: PERRL, EOM intact - Neck Neck: Present: supple, normal ROM - Respiratory Respiratory effort: normal Respiratory: bilateral: diminished, negative: rales, rhonchi, wheezing - Cardiovascular Rhythm: regular Heart Sounds: Present: S1 & S2 - Extremities Extremities: no ischemia, No edema - Abdominal General gastrointestinal: Present: soft, non-tender, non-distended, normal bowel sounds - Integumentary Integumentary: Present: clear, warm - Musculoskeletal Musculoskeletal: strength equal bilaterally - Psychiatric Psychiatric: appropriate mood/affect, cooperative - Neurologic Neurologic: CNII-XII intact, moves all extremities Plan Activity: no restrictions Diet: regular Additional Instructions: Follow [facility] in 2-3 days Follow up with: PRIMARY CARE, [Primary Care Provider] - 3-5 Days Prescriptions: ARIPiprazole [Abilify TAB] 5 mg PO HS #14 tablet diphenhydrAMINE [Benadryl CAP] 25 mg PO QHS #14 capsule
[2018-01-19 13:16] VITALS: BP 109/69
--- NOTE | 2018-01-19 13:47 | Progress Note ---
Subjective - Reason for Consult Consult date: 01/19/18 Reason for consult: Psychiatry Follow-up - Chief Complaint Chief complaint: "I have learned my lesson" Patient is a 22 year old female who presents to the ER for overdosing on several Risperdal pills. Today the patient is calm and cooperative during the assessment. She stated that she have learned her lesson. She stated that her actions were not safe. The patient's mother Mary Ellen Levine, stated that she feel safe for her daughter to return home. The patient denies SI /HI's and AVH's. She denies any side effects of her medication. Mental Status Exam - Vital signs Last Vital Signs Temp 98.4 F 01/19/18 12:30 Pulse 96 H 01/19/18 12:30 Resp 22 01/19/18 12:30 BP 109/69 01/19/18 12:30 Pulse Ox 98 01/19/18 04:41 - Exam Narrative exam: MSE: Appearance: calm, cooperative Behavior: regular eye contact Speech: regular rate and low tone Mood: "okay" Affect: congruent to mood Thought Process: linear Thought Content: denies SI/HI's and AVH's Motor Activity: lying in bed Cognition: A/O x 3 Insight: appropriate Judgment: appropriate Assessment and Plan Impression: Hx of Bipolar DO. Overdose on risperidone (18-20) two milligram tabs. Hx of self injury. Today the patient is calm and cooperative during the assessment. The patient is no threat to self. DDx: R/O Personality DO I. This screening and assessment is based on information collected from the following sources: II. SUICIDE RISK SCREENING (within last 30 days): A.) Suicidal thoughts/behaviors: Yes SUICIDE RISK ASSESSMENT III. FACTORS THAT INCREASE RISK: A.) Demographic and Substance Use Factors: No B.) Current/Recent Factors (within past 3 months): Psychosocial/Environmental Factors: Life Stressors Physical Illness: None Cognitive/Psychological Factors: None C.) Historical Factors: None D.) Diagnostic/Symptom/Treatment Factors: None E.) Acute Risk Factor Severity (DESC; MILD/MOD/SEVERE): Mild Other factors for this individual that increase risk: None IV. FACTORS THAT DECREASE RISK: Resilience/Protective Factors: Patient want to decrease her stress Other factors for this individual that decrease risk: Patient denies a desire to harm self V. Clinician's Formulation of Risk and Determination of level of Care: This is a 22 year-old AA female who ingested multiple Risperdal pills prior to her arrival to the ER. She stated that she was "stressed and wanted to rest." She She acknowledged that she should have called a crisis line instead of taking pills. She stated that she will follow-up with outpatient psy services once discharged. Since being hospitalized the patient has consistently denied the desire to harm herself. Additionally, she has become insightful about how to better address her current issues. The patient is not impaired by substance. She is able to take care of her ADLs and is not at imminent risk of harm to self or others. Consequently, it is the opinion of the treatment team that the patient is at low risk of suicide and does not meet criteria to continue an involuntary psychiatric hold. Estimation of Imminent Risk: Low due to the above explanation. Determination of Level of Care based on Suicide Risk: Outpatient follow-up. Narrative description of clinical reasoning. Given the fact that the patient is willing to engage in outpatient psy services and have a supportive network ( mother), it is reasonable to expect that the patient will seek services. At this current time, she is not impulsive and does not have any risk factors to increase the likelihood of her impulsive behavior. Therefore, it is reasonable to expect that the patient will engage in outpatient psy services which will reduce further unsafe behaviors. . Plan and Interventions based on Suicide Risk: This patient will likely be stepped down to an outpatient mental health center in the community upon discharge and follow-up within 7 days of her discharge from the hospital. VII. Discharge/After Hours Support Plan: Patient can return back to the ER, call 911 or crisis line if symptoms of depression, anxiety, suicidality return. Recommendation/Plan: Rescind 1013. Continue Abilify 5 mg PO mood. Discussed possible metabolic side effects of Abilify with patient and her mother Mary Ellen Levine. Discussed the generalized coping skill with the patient. Safety Contract completed with the patent. The patient can follow up [facility] for outpatient psy services.
== END 2018-01-19 15:05 | disposition home or self-care (01) | DRG 918 ==
LOC: ED 02:20 → CC1 06:02 → 4A 19:02 → 3A 01-17 14:59
PROVIDERS: ADMIT Internal Medicine; ATTEND Internal Medicine
DX: T43.592A Poisoning by other antipsychotics and neuroleptics, intentional self-harm, initial encounter (principal); F31.30 Bipolar disorder, current episode depressed, mild or moderate severity, unspecified; E87.2 Acidosis; F20.9 Schizophrenia, unspecified; F41.9 Anxiety disorder, unspecified; E87.6 Hypokalemia; T14.91XA Suicide attempt, initial encounter; Y92.89 Other specified places as the place of occurrence of the external cause
CPT/HCPCS: 36415; 80048; 80053; 80307; 80320; 81001; 83735; 84132; 84703; 85025; 93005; 93010; G0480; J0610; J2405; J3475; J3480; J7030

== ENCOUNTER 2018-07-16 11:42 | Emergency (ER) | payer SELFPAY ==
--- NOTE | 2018-07-16 11:54 | Emergency Department Report ---
Blank Doc - Documentation Documentation: This is a 22-year-old female that presents with URI symptoms. Denies any other complaints. This initial assessment diagnostic orders/clinical plan/treatment(s) is/are subject to change based on patient's health status, clinical progression and re- assessment by fellow clinical providers in the ED. Further treatment and workup at subsequent clinical providers discretion. Patient/guardians urged not to elope from ED s their condition may be serious if not clinically assessed and managed. Initial orders include: 1-Patient sent to [facility] for further evaluation and treatment 2- CXR
[2018-07-16 11:55] VITALS: BP 111/66
--- NOTE | 2018-07-16 13:12 | XRay Report ---
FINAL REPORT EXAM: XR CHEST ROUTINE 2V HISTORY: cough TECHNIQUE: Frontal and lateral views of the chest. PRIORS: None currently available. FINDINGS: Cardiac silhouette is within normal limits. There is no effusion. There is no pneumothorax. There is no consolidation. There are no suspicious osseous lesions. IMPRESSION: No acute cardiopulmonary findings.
--- NOTE | 2018-07-16 13:28 | Emergency Department Report ---
Minor Respiratory - HPI Chief Complaint: Upper Respiratory Infection Stated Complaint: PRANEETH/HEAD HURTS/CHEST PAIN Time Seen by Provider: 07/16/18 11:53 Duration: 3 Days Minor Respiratory: Yes Rhinorrhea, Yes Sore Throat, Yes Able to Tolerate Fluids, Yes Cough, Yes Fever (chills), No Ear Pain, No Sick Contacts, No Hemoptysis, No Chest Pain, No Shortness of Breath ED Review of Systems ROS: Stated complaint: PRANEETH/HEAD HURTS/CHEST PAIN Other details as noted in HPI Comment: All other systems reviewed and negative ED Past Medical Hx - Past Medical History Previous Medical History?: Yes Hx Psychiatric Treatment: Yes Hx Asthma: Yes Additional medical history: anxiety - Surgical History Past Surgical History?: No - Social History Smoking Status: Never Smoker Substance Use Type: Marijuana - Medications Home Medications: Home Medications Medication Instructions Recorded Confirmed Last Taken Type Diclofenac Sodium 75 mg PO BID PRN #14 tablet. 04/30/15 01/17/18 Unknown Rx ARIPiprazole [Abilify TAB] 5 mg PO HS #14 tablet 01/19/18 Unknown Rx diphenhydrAMINE [Benadryl CAP] 25 mg PO QHS #14 capsule 01/19/18 Unknown Rx ALBUTEROL Inhaler (OR & NICU) 2 puff IH QID PRN #1 inhalation 07/16/18 Unknown Rx [ProAir HFA Inhaler] Benzonatate [Tessalon Perles] 100 mg PO Q8HR #10 capsule 07/16/18 Unknown Rx predniSONE [Deltasone] 10 mg PO .TAPER #21 tab 07/16/18 Unknown Rx Minor Respiratory Exam - Exam General: Vital signs noted. No distress. Alert and acting appropriately. HEENT: Yes Moist Mucous Membranes, No Pharyngeal Erythema, No Pharyngeal Exudates, No Rhinorrhea, No Conjuctival Injection, No Frontal Tenderness, No Maxillary Tenderness Ear: Neither TM Bulge, Neither TM Erythema, Neither EAC Pain, Neither EAC Dis charge Neck: Yes Supple, No Adenopathy Lungs: Yes Good Air Exchange, No Wheezes, No Ronchi, No Stridor, No Cough, No Labored Respirations, No Retractions, No Use of Accessory Muscles, No Other Abnormal Lung Sounds Heart: Yes Regular, No Murmur Abdomen: Yes Normal Bowel Sounds, No Tenderness, No Peritoneal Signs Skin: No Rash, No Edema Neurologic: Alert and oriented, no deficits. Musculoskeletal: Unremarkable. ED Course Vital Signs 07/16/18 11:53 Temperature 97.9 F Pulse Rate 95 H Respiratory 18 Rate Blood Pressure 111/66 [Right] O2 Sat by Pulse 98 Oximetry ED Medical Decision Making - Radiology Data CXR WNL Patient likely with a viral bronchitis and the patient be treated with meds for symptomatic relief. Critical care attestation.: If time is entered above; I have spent that time in minutes in the direct care of this critically ill patient, excluding procedure time. ED Disposition Clinical Impression: Acute bronchitis Qualifiers: Bronchitis organism: unspecified organism Qualified Code(s): J20.9 - Acute bronchitis, unspecified Disposition: DC-01 TO HOME OR SELFCARE Is pt being admited?: No Does the pt Need Aspirin: No Condition: Stable Instructions: Acute Bronchitis (ED) Referrals: LORETO KAPOOR MD [Primary Care Provider] - 3-5 Days Time of Disposition: 13:27
== END 2018-07-16 13:31 | disposition home or self-care (01) ==
LOC: ED 11:42
DX: J20.9 Acute bronchitis, unspecified (principal); J45.909 Unspecified asthma, uncomplicated; F41.9 Anxiety disorder, unspecified
CPT/HCPCS: 71046; 99283

== ENCOUNTER 2020-03-03 16:18 | Emergency (ER) | payer SELFPAY ==
[2020-03-03 16:34] VITALS: BP 140/88
== END 2020-03-04 00:32 | disposition left against medical advice (07) ==
LOC: ED 16:18
DX: R07.9 Chest pain, unspecified (principal); Z53.21 Procedure and treatment not carried out due to patient leaving prior to being seen by health care provider